=== PATIENT | female | born 1945 | race Caucasian/White ===

== ENCOUNTER 2018-02-06 09:47 | Emergency (ER) | payer MEDICARE, OTHER ==
--- NOTE | 2018-02-06 11:12 | RAD ---
RIGHT FOOT 3 VIEWS: Date: 02/06/18 HISTORY: Right foot pain. FINDINGS: There is a transverse fracture involving the base of the fifth metatarsal. Tarsals appear intact. Phalanges are intact. MTP joints are unremarkable. IMPRESSION: Transverse fracture base of fifth metatarsal. POS: [facility]
== END 2018-02-06 10:40 | disposition home or self-care (01) ==
LOC: NAV ERS 09:47
DX: S92.351A Displaced fracture of fifth metatarsal bone, right foot, initial encounter for closed fracture (principal); E03.9 Hypothyroidism, unspecified; F41.9 Anxiety disorder, unspecified; Z79.899 Other long term (current) drug therapy; X50.1XXA Overexertion from prolonged static or awkward postures, initial encounter